=== PATIENT | female | born 1940 | race Native Hawaiian/Other Pacific Islander ===

== ENCOUNTER 2023-06-14 15:30 | Emergency (ER) | payer OTHER ==
[~2023-06-14] VITALS: Ht 172.7 cm; Wt 79.1 kg
[2023-06-14 15:30] VITALS: TEMP 98.4
[~2023-06-14 15:30] MED LIST: ACET-206 PO; ACET650S18 RE; ASPIRIN DR81 MG PO; CARV6.25 PO; CASA100C53 PO; CELEXA10 MG PO; CLOP75TA2 PO; COLACE 2-IN-1 81 TAB PO; COREG 6.25MG TAB PO; DIOVAN 160MG TAB PO; DIVALPROEX125 MG PO; Depakote Sprinkles 1 PO; ENTERIC COATED325 MG PO; ESCI10TA PO; EUTHYROX50 MCG PO; FURO40TA93 PO; INSU-1996 SC; INSUINJP SC; ISOS30TA17 PO; LEVO0.0529 PO; MEGE40TA32 PO; MELATONIN3 M1 PO; MEMA10TA2 PO; NITR0.4S2 SL; QUET25TA2 PO; TRAMADOL HYDROC50 MG PO; TYLENOL325 MG PO; VALSARTAN160 MG PO
[2023-06-14 16:10] LABS: PLATELET COUNT 309 K/uL (152-353)
[2023-06-14 16:24] LABS: POTASSIUM 4.5 mmol/L (3.6-5.2)
[2023-06-14 17:24] VITALS: BP 163/78
[2023-06-14] MEDS ORDERED: ACET-206 PO (19:30)
[2023-06-14] MEDS ORDERED: ASPI81TA4 PO (19:31)
[2023-06-14] MEDS ORDERED: DIVA125C PO (19:34)
[2023-06-14] MEDS ORDERED: LEVO0.0529 PO (19:39)
[2023-06-14] MEDS ORDERED: ESCI10TA PO (19:40)
== END 2023-06-14 17:24 | disposition still patient (30) ==
LOC: ED 15:30
PROVIDERS: Family Medicine
DX: Z00.8 Encounter for other general examination (principal); R45.1 Restlessness and agitation; F03.918 Unspecified dementia, unspecified severity, with other behavioral disturbance
CPT/HCPCS: 80053; 85027; 87635; 93005; 99283; U0003